=== PATIENT | male | born 1965 | race African-American/Black ===

== ENCOUNTER 2019-03-03 06:52 | Day surgery (SDC) | payer OTHER ==
[2019-03-03] MEDS ORDERED: PROPOFOL 200 MG INJ (08:30)
[2019-03-03] MEDS ORDERED: LIDOCAINE 2% (SDV) 5 ML INJ (08:30)
[2019-03-03] MEDS ORDERED: PROPOFOL 80 ML (08:31)
== END 2019-03-03 10:57 | disposition home or self-care (01) ==
LOC: GIL 06:52
DX: Z12.11 Encounter for screening for malignant neoplasm of colon (principal); D12.3 Benign neoplasm of transverse colon; K64.8 Other hemorrhoids
CPT/HCPCS: 45385; 88305